=== PATIENT | female | born 1960 | race Caucasian/White ===

== ENCOUNTER → 2016-07-01 | Outpatient (CLI) | payer BC | LOC: EMS 02:10 | DX: Z53.20 Procedure and treatment not carried out because of patient's decision for unspecified reasons (principal) ==

== ENCOUNTER 2016-11-07 18:41 | Emergency (ER) | payer BC ==
[~2016-11-07] VITALS: Ht 162.6 cm; Wt 99.0 kg
--- OUTSIDE RECORDS SUMMARY | 2016-11-07 18:46 | XMS REPORT | Continuity of Care Document ---
Author Author [facility] Organization [facility] Address Unknown Phone Unavailable Care Team Providers Care Tangled Yarn Spool Straightener Name Role Phone PCP Unavailable Source Comments Some departments are not documenting in the electronic medical record. If you do not see the information that you expected, contact Release of Information in the Health Information Management department at [phone] for further assistance in locating additional records.[facility] Active Allergies and Adverse Reactions Allergen Noted Date Severity Reactions Comments Ciprofloxacin 06/27/2013 ITCHING Codeine 06/27/2013 SEE COMMENTS Tongue swelling Demerol 08/29/2013 SEIZURES Latex, Natural Rubber 06/27/2013 RASH Lortab 06/27/2013 NAUSEA AND VOMITING Oxycodone 06/27/2013 ITCHING Pcn 06/27/2013 NAUSEA AND VOMITING, ITCHING Percocet 06/27/2013 ITCHING Sulfa (Sulfonamide 06/27/2013 ITCHING Antibiotics) Current Medications Prescription Sig. Disp. Refills Start End Date Status Date zolpidem (AMBIEN) 10 mg Take 10 mg by mouth at Active tablet bedtime daily. glimepiride (AMARYL) 4 mg Take 4 mg by mouth twice Active tablet daily. pravastatin (PRAVACHOL) Take 20 mg by mouth. Active 20 mg tablet ALPRAZolam (XANAX) 0.5 mg Take 0.5 mg by mouth at Active tablet bedtime as needed. levothyroxine (SYNTHROID) Take 150 mcg by mouth. Active 150 mcg tablet traMADol (ULTRAM) 50 mg Take 50 mg by mouth every Active tablet 8 hours as needed. morphine IR (MSIR) 15 mg Take 15 mg by mouth every Active tablet 6 hours as needed citalopram (CELEXA) 40 mg Take 40 mg by mouth Active tablet daily. lisinopril (PRINIVIL, Take 40 mg by mouth Active ZESTRIL) 40 mg tablet daily. sitaGLIPtin (JANUVIA) 100 Take 100 mg by mouth Active mg tab tablet daily. diphenhydrAMINE Take 25 mg by mouth every Active (BENADRYL) 25 mg capsule 6 hours as needed. melatonin 10 mg cap Take by mouth. Active oxybutynin XL (DITROPAN Take 1 Tab by mouth 90 Tab 3 10/11/19 Active XL) 10 mg tablet daily. 14 Active Problems Problem Noted Date Female dyspareunia 06/27/2013 Abnormal vaginal bleeding 06/27/2013 Urge incontinence 06/27/2013 OAB (overactive bladder) 06/27/2013 Fecal urgency 06/27/2013 Urinary and fecal incontinence 06/27/2013 Social History Tobacco Use Types Packs/Day Years Used Date Former Smoker Alcohol Use Drinks/Week oz/Week Comments No Last Filed Vital Signs Vital Sign Reading Time Taken Blood Pressure 188/95 10/24/2013 1:11 PM CDT Pulse 105 10/24/2013 1:11 PM CDT Temperature - - Respiratory Rate - - Height 1.626 m (5' 4") 10/24/2013 1:11 PM CDT Weight 113.399 kg (250 lb) 10/24/2013 1:11 PM CDT Body Mass Index 42.89 10/24/2013 1:11 PM CDT Oxygen Saturation - - Plan of Care Health Maintenance Due Date Last Done Comments Hepatitis C Screening 1959 Physical (Comprehensive) 1966 Exam Pertussis Vaccine 1970 Tetanus Vaccine 1976 Cervical Cancer Screening 1980 Breast Cancer Screening 1999 Colorectal Cancer 2009 Screening Influenza Vaccine 02/20/2017 Results from Last 3 Months Not on file
--- OUTSIDE RECORDS SUMMARY | 2016-11-07 18:47 | XMS REPORT | Continuity of Care Document ---
Author Author [facility] Organization [facility] Address Unknown Phone Unavailable Care Team Providers Care Licensed Occupational Therapist Name Role Phone PCP Unavailable Source Comments Some departments are not documenting in the electronic medical record. If you do not see the information that you expected, contact Release of Information in the Health Information Management department at [phone] for further assistance in locating additional records.[facility] Active Allergies and Adverse Reactions Allergen Noted [...]
--- NOTE | 2016-11-07 18:55 | NUR ---
Hx: Asthma, has been using inhaler at home. Pt presents to ER with c/o trouble breathing. Onset yesterday. Reports having breast surgery one month ago. Has been on antibiotics, second round now. Pt "thinks this has something to do with her breast surgery". Pt presents tachypnic, SOA and coughing. Afebrile, although pt reports having a fever off and on at home. Daughter has accompanied pt. Admitted to ER room 3.
[2016-11-07] MEDS ORDERED: ALBUTEROL 0.083% NEB SOLUTION 2.5 MG/3 ML VIAL INH ONE (19:00)
[2016-11-07] MEDS ORDERED: predniSONE 20 MG (DELTASONE) TABLET PO ONE (19:05)
[2016-11-07] MEDS ORDERED: NF-LISIN40 PO (19:46)
[2016-11-07] MEDS ORDERED: PRAV40TA2 PO (19:46)
[2016-11-07] MEDS ORDERED: LEVO100T7 PO (19:46)
[2016-11-07] MEDS ORDERED: ALPR1TAB2 PO (19:46)
[2016-11-07] MEDS ORDERED: ALBU8.5H2 IH (19:46)
[2016-11-07] MEDS ORDERED: CITA40TA19 PO (19:46)
[2016-11-07] MEDS ORDERED: HUM100IN2 SC (19:46)
[2016-11-07] MEDS ORDERED: GBPN300C PO (19:46)
--- NOTE | 2016-11-07 19:47 | NUR ---
Peak Flow reading 220 per RT
--- NOTE | 2016-11-07 20:15 | Diagnostic Imaging Report ---
Clinical indication: Patient with shortness of breath and cough. Exam: Chest x-ray PA and lateral views. Comparisons: None. Findings: There is blurring of the right hemithorax region which may be due to motion artifact. Lungs/pleura: Mild low lung volumes are seen with suspected mild bibasilar atelectasis. Otherwise, lungs are clear. There is no pneumothorax. There is no pleural effusion. Mediastinum: Unremarkable. Pulmonary vasculature: Unremarkable. Heart: Unremarkable. Bones/extrathoracic soft tissue: There are moderately hypertrophic degenerative osteophytes scattered throughout the thoracic spine. Postop changes with screw seen involving the bilateral proximal humeri. Impression: 1: There is blurring of the right hemithorax region which may be related to motion artifact. 2: There is mild low lung volumes with suspected mild bibasilar atelectasis. 3: Otherwise, there is no radiographic evidence of acute cardiopulmonary process. Dictated by: Dictated on workstation # [id number]
[2016-11-07] MEDS ORDERED: PRED20TA PO (20:24)
[2016-11-07] MEDS ORDERED: BENZ-13 PO (20:25)
[2016-11-07 20:45] VITALS: BP 177/75
--- NOTE | 2016-11-07 20:50 | NUR ---
Pt dismissed to home with prescriptions and instructions. Pt stated her understanding. Pt left ambulatory to POV. No other concerns or questions.
== END 2016-11-07 20:50 | disposition home or self-care (01) ==
LOC: ED 18:42
DX: J45.901 Unspecified asthma with (acute) exacerbation (principal)
CPT/HCPCS: 71020; 94640; 99282; J7613; 99283